=== PATIENT | male | born 1965 | race American Indian/Alaskan Native ===

== ENCOUNTER 2017-06-26 23:31 | Emergency (ER) | payer MEDICAID ==
[2017-06-26 23:32] VITALS: BMI 27.1
[2017-06-26 23:45] VITALS: BP 128/86; PULSE 92; RESP 16; TEMP 98; O2SAT 99
--- NOTE | 2017-06-27 00:09 | ED PDOC ---
HPI: Psych/Substance Abuse Time Seen by Provider: 06/26/17 23:53 Chief Complaint (Nursing): Psychiatric Evaluation Chief Complaint (Provider): crisis eval History Per: Patient History/Exam Limitations: no limitations Additional Complaint(s): 52 y/o male self-presents for crisis evaluation. Patient states he is noncompliant with his psych medications, and feels he is declining. Patient reports suicidal and homicidal ideations. Drinks daily. Denies hallucinations, acute medical complaints. Past Medical History Reviewed: Historical Data, Nursing Documentation, Vital Signs Vital Signs: Last Vital Signs Temp 98.0 F 06/26/17 23:42 Pulse 92 H 06/26/17 23:42 Resp 16 06/26/17 23:42 BP 128/86 06/26/17 23:42 Pulse Ox 99 06/26/17 23:42 - Medical History PMH: Anxiety, Bipolar Disorder, Depression, HTN (used to take medication can not remember name), Hypercholesterolemia (used to take medication can not remember name), Hyperlipidemia, Personality Disorder (multiple fights,agression) , Schizophrenia (Schizoaffective) Denies: Alzheimer's Disease, Anemia, Arthritis, Asthma, Atrial Fibrillation, Bronchitis, Cardia Arrhythmia, CHF, COPD, Crohn's Disease, Dementia, Diverticulitis, Emphysema, Fractures, Gastritis, Gall Bladder Disease, HIV ( Patient denied), Hyperthyroidism, Hypothyroidism, Kidney Stones, Migraine, Mitral Valve Prolapse, Multiple Sclerosis, Osteoporosis, Pancreatitis, Parkinson 's Disease, Peripheral Edema, Pneumonia, Post Traumatic Stress Disorder, Pulmonary Embolism, Chronic Kidney Disease, Rheumatoid Arthritis, Seizures ( Patient denied), Sickle Cell Disease, Sexually Transmitted Disease (Patient denied), Sleep Apnea, TIA - Surgical History Surgical History: Denies: Appendectomy, CABG, Carotid Endarterectomy, Cholecystectomy, Coronary Stent, Pacemaker, Tonsillectomy - Family History Family History: States: Unknown Family Hx - Immunization History Hx Tetanus Toxoid Vaccination: No Hx Influenza Vaccination: No Hx Pneumococcal Vaccination: No - Home Medications Home Medications: Ambulatory Orders Medication Instructions Recorded Gabapentin [Neurontin] 300 mg PO BID #60 cap 04/17/17 traZODone [Desyrel] 100 mg PO HS PRN #30 tab 04/17/17 QUEtiapine [Seroquel] 100 mg PO HS #14 tab 05/09/17 Sertraline [Zoloft] 100 mg PO DAILY 14 Days #30 tab 05/09/17 Divalproex [Depakote] 500 mg PO DAILY 06/10/17 clonazePAM [clonAZEPAM] 0.5 mg PO DAILY 06/10/17 - Allergies Allergies/Adverse Reactions: Allergies Allergy/AdvReac Type Severity Reaction Status Date / Time No Known Allergies Allergy Verified 05/20/17 18:49 Review of Systems ROS Statement: Except As Marked, All Systems Reviewed And Found Negative Psych: Positive for: Depression, Suicidal ideation Physical Exam - Reviewed Nursing Documentation Reviewed: Yes Vital Signs Reviewed: Yes - Physical Exam Appears: Positive for: Well, Non-toxic, Uncomfortable Head Exam: Positive for: ATRAUMATIC, NORMAL INSPECTION, NORMOCEPHALIC Skin: Positive for: Normal Color Eye Exam: Positive for: Normal appearance ENT: Positive for: Normal ENT Inspection Cardiovascular/Chest: Positive for: Regular Rate, Rhythm Respiratory: Positive for: Normal Breath Sounds Gastrointestinal/Abdominal: Positive for: Normal Exam Back: Positive for: Normal Inspection Extremity: Positive for: Normal ROM Neurologic/Psych: Positive for: Alert, Oriented - Laboratory Results Result Diagrams: 06/27/17 01:10 06/27/17 01:10 - ECG O2 Sat by Pulse Oximetry: 99 - Progress ED Course And Treament: labs, urine, 1:1, crisis eval 1:30 Patient awake, resting comfortably 3:00 Patient sleeping; no acute distress 4:30 Patient awake, alert, oriented x3. Ambulating steady gait. Patient evaluated by wireworker supervisor; does not meet criteria for admission at this time as per Dr. Elizondo. Follow up outpatient. Stable for discharge. Return precautions given. Disposition - Clinical Impression Clinical Impression: Alcohol use disorder - Patient ED Disposition Is Patient to be Admitted: No Counseled Patient/Family Regarding: Studies Performed, Diagnosis, Need For Followup - Disposition Disposition: Routine/Home Disposition Time: 04:29 Condition: STABLE Instructions: Alcohol Abuse and Alcoholism (DC)
[2017-06-27 01:23] LABS: URINE BILIRUBIN NEGATIVE (NEGATIVE); URINE BLOOD NEGATIVE (NEGATIVE); URINE CLARITY CLEAR (Clear); URINE COLOR COLORLESS (YELLOW); URINE GLUCOSE (UA) NEG (Normal); URINE LEUKOCYTE ESTERASE NEG Leu/uL (Negative); URINE PROTEIN NEGATIVE (NEGATIVE); URINE UROBILINOGEN 0.2-1.0 mg/dL (0.2-1.0)
[2017-06-27 01:26] LABS: BASO % 0.8 % (0.0-2.0); EOS # 0.1 K/uL (0.0-0.7); EOS % 1.4 % (0.0-4.0); HEMOGLOBIN 12.3 g/dL (12.0-18.0); LYMPH # 1.5 K/uL (1.0-4.3); LYMPH % 26.1 % (20.0-40.0); MEAN CELL VOLUME 93.7 fl (80.0-94.0); MEAN CORPUSCULAR HEMOGLOBIN 30.5 pg (27.0-31.0); MEAN CORPUSCULAR HGB CONC 32.5 g/dL (33.0-37.0); MONO # 0.8 K/uL (0.0-0.8); MONO % 13.6 % (0.0-10.0); NEUT # 3.3 K/uL (1.8-7.0); NEUT % 58.1 % (50.0-75.0); NRBC % 0.3 % (0.0-0.0); RBC 4.02 Mil/uL (4.40-5.90); RED CELL DISTRIBUTION WIDTH 13.1 % (11.5-14.5); WHITE BLOOD COUNT 5.7 K/uL (4.8-10.8)
[2017-06-27 01:47] LABS: ALB/GLOB RATIO 1.1 (1.0-2.1); ALBUMIN 4.2 g/dL (3.5-5.0); ALT/SGPT 27 U/L (21-72); AST/SGOT 35 U/L (17-59); BLOOD UREA NITROGEN 12 mg/dl (9-20); CALCIUM 9.6 mg/dL (8.4-10.2); GFR AFRICAN-AMERICAN > 60; GFR NON-AFRICAN AMERICAN > 60
[2017-06-27 01:52] LABS: BARBITURATES, UR NEGATIVE (NEGATIVE); BENZODIAZEPINES, UR NEGATIVE (NEGATIVE); OPIATES, UR NEGATIVE (NEGATIVE)
[2017-06-27 02:32] LABS: PHENCYCLIDINE, UR NEGATIVE (NEGATIVE)
== END 2017-06-27 05:20 | disposition home or self-care (01) ==
LOC: H.ER 23:31
DX: F10.129 Alcohol abuse with intoxication, unspecified (principal); R45.851 Suicidal ideations; F31.9 Bipolar disorder, unspecified; F41.9 Anxiety disorder, unspecified; I10 Essential (primary) hypertension; Z86.73 Personal history of transient ischemic attack (TIA), and cerebral infarction without residual deficits; Z91.19 Patient's noncompliance with other medical treatment and regimen

== ENCOUNTER 2017-09-04 23:41 | Emergency (ER) | payer MEDICAID ==
[2017-09-04 23:42] VITALS: BMI 27.1
[2017-09-04 23:55] VITALS: BP 114/75; PULSE 94; RESP 16; TEMP 97.5; O2SAT 97
--- NOTE | 2017-09-05 01:01 | ED PDOC ---
HPI: General Adult Time Seen by Provider: 09/04/17 23:44 Chief Complaint (Nursing): Med Refill History Per: Patient History/Exam Limitations: no limitations Additional Complaint(s): Patient states he doesn't have access to his psych meds. States he's feeling anxious. No SI/HI. Patient was asleep prior to history. Past Medical History Reviewed: Historical Data, Nursing Documentation, Vital Signs Vital Signs: Last Vital Signs Temp 97.5 F L 09/04/17 23:53 Pulse 94 H 09/04/17 23:53 Resp 16 09/04/17 23:53 BP 114/75 09/04/17 23:53 Pulse Ox 97 09/04/17 23:53 - Medical History PMH: Anxiety, Bipolar Disorder, Depression, HTN (used to take medication can not remember name), Hypercholesterolemia (used to take medication can not remember name), Hyperlipidemia, Personality Disorder (multiple fights,agression) , Schizophrenia (Schizoaffective) Denies: Alzheimer's Disease, Anemia, Arthritis, Asthma, Atrial Fibrillation, Bronchitis, Cardia Arrhythmia, CHF, COPD, Crohn's Disease, Dementia, Diabetes, Diverticulitis, Emphysema, Fractures, Gastritis, Gall Bladder Disease, Hepatitis , HIV (Patient denied), Hyperthyroidism, Hypothyroidism, Kidney Stones, Migraine , Mitral Valve Prolapse, Multiple Sclerosis, Osteoporosis, Pancreatitis, Parkinson's Disease, Peripheral Edema, Pneumonia, Post Traumatic Stress Disorder , Pulmonary Embolism, Chronic Kidney Disease, Rheumatoid Arthritis, Seizures ( Patient denied), Sickle Cell Disease, Sexually Transmitted Disease (Patient denied), Sleep Apnea, TIA - Surgical History Surgical History: Denies: Appendectomy, CABG, Carotid Endarterectomy, Cholecystectomy, Coronary Stent, Pacemaker, Tonsillectomy - Family History Family History: States: Unknown Family Hx - Immunization History Hx Tetanus Toxoid Vaccination: No Hx Influenza Vaccination: No Hx Pneumococcal Vaccination: No - Home Medications Home Medications: Ambulatory Orders Medication Instructions Recorded Gabapentin [Neurontin] 300 mg PO BID #60 cap 04/17/17 traZODone [Desyrel] 100 mg PO HS PRN #30 tab 04/17/17 QUEtiapine [Seroquel] 100 mg PO HS #14 tab 05/09/17 Sertraline [Zoloft] 100 mg PO DAILY 14 Days #30 tab 05/09/17 Divalproex [Depakote] 500 mg PO DAILY 06/10/17 clonazePAM [clonAZEPAM] 0.5 mg PO DAILY 06/10/17 - Allergies Allergies/Adverse Reactions: Allergies Allergy/AdvReac Type Severity Reaction Status Date / Time No Known Allergies Allergy Verified 08/20/17 20:55 Review of Systems ROS Statement: Except As Marked, All Systems Reviewed And Found Negative Physical Exam - Reviewed Nursing Documentation Reviewed: Yes Vital Signs Reviewed: Yes - Physical Exam Appears: Positive for: Well, Non-toxic, No Acute Distress Head Exam: Positive for: ATRAUMATIC, NORMAL INSPECTION, NORMOCEPHALIC Neurologic/Psych: Positive for: Alert, director 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 Negative for: Motor/Sensory Deficits - ECG O2 Sat by Pulse Oximetry: 97 Medical Decision Making Medical Decision Making: Patient presenting after not taking medications. Feeling "Anxious" however does not appear anxious. PAtient signed up to be seen after being asked to leave ER. Will give benadryl 25mg and d/c with referral to [facility] in the AM. Disposition - Clinical Impression Clinical Impression: Medication refill - Patient ED Disposition Is Patient to be Admitted: No - Disposition Referrals: [facility] [Outside] Disposition: Routine/Home Disposition Time: 01:01 Condition: STABLE Instructions: Anxiety, Adult (DC)
== END 2017-09-05 01:30 | disposition home or self-care (01) ==
LOC: H.ER 23:41
DX: F41.9 Anxiety disorder, unspecified (principal); Z76.0 Encounter for issue of repeat prescription; Z86.59 Personal history of other mental and behavioral disorders; I10 Essential (primary) hypertension; Z86.73 Personal history of transient ischemic attack (TIA), and cerebral infarction without residual deficits; E78.00 Pure hypercholesterolemia, unspecified